=== PATIENT | male | born 1950 | race Two or more races ===

== ENCOUNTER 2017-03-19 19:20 | Emergency (ER) | payer MEDICARE, MEDICAID ==
[~2017-03-19] VITALS: Ht 157.5 cm; Wt 65.3 kg
[2017-03-19] MEDS ORDERED: SIMV10TA2 (19:42)
[2017-03-19] MEDS ORDERED: GLIM2TAB (19:42)
[2017-03-19] MEDS ORDERED: OLAN10TA2 (19:42)
[2017-03-19] MEDS ORDERED: PARO40TA2 (19:42)
[2017-03-19] MEDS ORDERED: INSUH10VL (19:42)
[2017-03-19] MEDS ORDERED: TRAD5TAB (19:42)
[2017-03-19] MEDS ORDERED: METF10004 (19:42)
[2017-03-19] MEDS ORDERED: DILA50HA (19:42)
[2017-03-19] MEDS ORDERED: NAME28CA (19:42)
[2017-03-19] MEDS ORDERED: [UNRECOGNIZED DRUG - CODE] (19:42)
[2017-03-19] MEDS ORDERED: RISP3TAB3 (19:42)
[2017-03-19] MEDS ORDERED: CLOP75TA2 (19:42)
[2017-03-19] MEDS ORDERED: TRIH2TAB3 (19:42)
[2017-03-19] MEDS ORDERED: DIAZ10TA2 (19:42)
[2017-03-19 22:45] LABS: BASO % 0.3 % (0.0-1.0); EOS # 0.5 10^3/uL (0.0-0.50); EOS % 7.4 % (0.0-3.0); IMMATURE GRANULOCYTE % 0.3 % (0-0); LYMPH % 48.8 % (24.0-44.0); MEAN CORPUSCULAR HEMOGLOBIN 33.5 pg (27.0-33.0); MEAN CORPUSCULAR HGB CONC 35.1 g/dl (32.0-36.5); MEAN CORPUSCULAR VOLUME 95.5 fl (80.0-96.0); MONO # 0.6 10^3/uL (0.0-0.8); NEUTROPHILS # 2.1 10^3/uL (1.8-7.7); NEUTROPHILS % 34.2 % (36.0-66.0); PLATELET COUNT, AUTOMATED 137 10^3/uL (150-450); RED CELL DISTRIBUTION WIDTH 13.4 % (11.5-14.5); WHITE BLOOD COUNT 6.1 10^3/uL (4.0-10.0)
[2017-03-19 23:11] LABS: ANION GAP 5 MEQ/L (8-16); BLOOD UREA NITROGEN 13 MG/DL (7-18); CALCIUM LEVEL 8.8 MG/DL (8.8-10.2); CARBON DIOXIDE LEVEL 32 MEQ/L (21-32); CHLORIDE LEVEL 98 MEQ/L (98-107); CREATININE FOR GFR 0.86 MG/DL (0.70-1.30); GLOMERULAR FILTRATION RATE > 60.0 (>49); GLUCOSE, FASTING 72 MG/DL (80-110); MAGNESIUM LEVEL 1.9 MG/DL (1.8-2.4); POTASSIUM SERUM 4.4 MEQ/L (3.5-5.1); SODIUM LEVEL 135 MEQ/L (136-145)
[2017-03-19 23:52] VITALS: BP 127/52
== END 2017-03-19 23:53 | disposition home or self-care (01) ==
LOC: M ED 19:20
DX: M62.838 Other muscle spasm (principal); E10.9 Type 1 diabetes mellitus without complications; G30.9 Alzheimer's disease, unspecified; F34.1 Dysthymic disorder; F17.210 Nicotine dependence, cigarettes, uncomplicated; Z79.4 Long term (current) use of insulin; Z79.84 Long term (current) use of oral hypoglycemic drugs; Z79.899 Other long term (current) drug therapy; Z88.8 Allergy status to other drugs, medicaments and biological substances; Z86.69 Personal history of other diseases of the nervous system and sense organs; Z86.011 Personal history of benign neoplasm of the brain